=== PATIENT | male | born 1970 | race Caucasian/White ===

== ENCOUNTER 2024-07-27 19:44 | Inpatient (IN) | payer MEDICAID ==
[~2024-07-27] VITALS: Ht 193 cm; Wt 88.0 kg
[2024-07-27] MEDS ORDERED: LORazepam 2 MG TABLET PO PRN (20:30)
[2024-07-27] MEDS ORDERED: QUEtiapine FUMARATE 100 MG TABLET PO PRN (20:30)
[2024-07-27] MEDS ORDERED: GuaiFENesin/D-METHORPHAN [SUGAR-FREE] 200-20MG/10 ML SYRUP UDCUP PO PRN (21:45)
[2024-07-27] MEDS ORDERED: ACETAMINOPHEN 325 MG TABLET PO PRN (21:45)
[2024-07-27] MEDS ORDERED: LOPERAMIDE HCL 2 MG CAPSULE PO PRN (21:45)
[2024-07-27] MEDS ORDERED: PROMETHAZINE HCL 25 MG TABLET PO PRN (21:45)
[2024-07-27] MEDS ORDERED: HydrOXYzine PAMOATE 50 MG CAPSULE PO PRN (21:45)
[2024-07-27] MEDS ORDERED: MAG HYDROX/ALUMINUM HYD/SIMETH ES 30 ML SUSPENSION UDCUP PO PRN (21:45)
[2024-07-27] MEDS ORDERED: TUBERCULIN, PURIFIED PROTEIN DERIVATIVE 5 TU/0.1 ML SYRINGE ID ONE (21:45)
[2024-07-27] MEDS ORDERED: MAGNESIUM HYDROXIDE SUSPENSION 30 ML UDCUP PO PRN (21:45)
[2024-07-27] MEDS: ZOLPIDEM TARTRATE 10 MG TABLET PO PRN (22:41)
[2024-07-27 22:53] VITALS: BP 117/52; PULSE 75; RESP 17; TEMP 76.5; O2SAT 96
[2024-07-28 08:07] VITALS: BP 125/66; PULSE 74; RESP 17; TEMP 98; O2SAT 99
[2024-07-28] MEDS: GABAPENTIN 300 MG CAPSULE PO SCH (08:13)
[2024-07-28] MEDS: THIAMINE 100 MG TABLET PO SCH (08:25)
[2024-07-28] MEDS: MULTIVITAMINS WITH MINERALS, THERAPEUTIC TABLET PO SCH (08:26)
[2024-07-28] MEDS: OMEGA-3/DHA/EPA/FISH OIL 1,000 MG CAPSULE PO SCH (08:26)
[2024-07-28] MEDS: NALTREXONE HCL 50 MG TABLET PO SCH (08:26)
[2024-07-28] MEDS: FOLIC ACID 1 MG TABLET PO SCH (08:27)
[2024-07-28] MEDS: DULoxetine HCL 20 MG CAPSULE PO SCH (08:27)
[2024-07-28 08:47] LABS: BASOPHILS % (AUTO) 0.8 % (0.0-2.0); EOSINOPHILS % (AUTO) 3.1 % (1.0-6.0); HEMATOCRIT 43.5 % (41-53); HEMOGLOBIN 14.4 g/dL (13.5-17.5); LYMPHOCYTES # (AUTO) 2.2 K/uL (1.0-4.8); MEAN CORPUSCULAR HEMOGLOBIN 30.1 pg (26.0-34.0); MEAN CORPUSCULAR HGB CONC 33.1 G/dL (31.0-37.0); MEAN CORPUSCULAR VOLUME 91 fL (80-100); MONOCYTES # (AUTO) 0.6 K/uL (0.1-1.0); NEUTROPHILS # (AUTO) 3.6 K/uL (1.8-7.7); NEUTROPHILS % (AUTO) 54.1 % (40.0-70.0); PLATELET COUNT (AUTO) 315 K/uL (150-450); RED BLOOD CELL COUNT(AUTO) 4.78 MIL/uL (4.50-5.90); RED CELL DISTRIBUTION WIDTH 13.4 % (11.5-14.5); WHITE BLOOD COUNT (AUTO) 6.6 K/uL (4.5-11.0)
[2024-07-28 09:01] LABS: GLUCOMETER DEV NAME(LOC) POC.BV; POC SARS-COV2 AG, FIA NEGATIVE (NEGATIVE)
[2024-07-28 09:05] LABS: HEMOGLOBIN A1C 5.6 % (3.8-5.6)
[2024-07-28 09:12] LABS: ALANINE AMINOTRANSFERASE 33 U/L (12-78); ALBUMIN 3.9 g/dL (3.4-5.0); ALKALINE PHOSPHATASE 57 U/L (46-116); ANION GAP 12 mmol/L (8-16); ASPARTATE AMINOTRANSFERASE 32 U/L (15-37); BILIRUBIN,TOTAL 0.8 mg/dL (0.1-1.0); CALCIUM, TOTAL 8.7 mg/dL (8.8-10.5); CARBON DIOXIDE 22 mmol/L (22-29); CHLORIDE 103 mmol/L (98-107); CHOL/HDL RATIO 2.4 (4.2-7.3); CHOLESTEROL 141 mg/dL (131-200); CREATININE 0.98 mg/dL (0.60-1.30); FREE T4 (FREE THYROXINE) 0.76 ng/dL (0.76-1.46); GLOMERULAR FILTR. RATE CALC > 60 mL/min (>60); GLUCOSE,RANDOM 88 mg/dL (70-110); HDL CHOLESTEROL 60 mg/dL (40-60); LDL CHOL (CALC.) 67 mg/dL (0-130); POTASSIUM 3.9 mmol/L (3.5-5.1); SODIUM SERUM 137 mmol/L (136-145); THYROID STIMULATING HORMONE 1.59 uIU/mL (0.36-3.74); TOTAL PROTEIN, SERUM 7.3 g/dL (6.4-8.2); TRIGLYCERIDES 68 mg/dL (15-150); UREA NITROGEN, BLOOD 13 mg/dL (7-18)
[2024-07-28] MEDS ORDERED: QUEtiapine FUMARATE 100 MG TABLET PO PRN (17:15)
[2024-07-28] MEDS: BusPIRone HCL 15 MG TABLET PO ONE (18:07)
[2024-07-28] MEDS: GABAPENTIN 400 MG CAPSULE PO ONE (18:07)
[2024-07-28] MEDS: QUEtiapine FUMARATE 300 MG TABLET PO SCH (20:55)
[2024-07-28] MEDS ORDERED: MELATONIN 5 MG TABLET PO SCH (21:00)
[2024-07-29 08:12] VITALS: BP 120/70; PULSE 79; RESP 17; TEMP 98.1; O2SAT 99
[2024-07-29] MEDS: GABAPENTIN 400 MG CAPSULE PO SCH (09:56)
[2024-07-29] MEDS: BusPIRone HCL 15 MG TABLET PO SCH (09:57)
[2024-07-29 20:32] VITALS: BP 91/54; PULSE 95; RESP 17; TEMP 98; O2SAT 96
[2024-07-30 08:08] VITALS: BP 99/66; PULSE 78; RESP 16; TEMP 97.3; O2SAT 96
[2024-07-30] MEDS: BusPIRone HCL 10 MG TABLET PO SCH (09:01)
[2024-07-30 20:38] VITALS: BP 101/62; PULSE 68; RESP 18; TEMP 98.5; O2SAT 100
[2024-07-31 08:43] LABS: APPEARANCE,URINE TURBID (CLEAR); BILIRUBIN,URINE NEGATIVE (NEGATIVE); GLUCOSE, URINE (UA) NEGATIVE (NEGATIVE); KETONES,URINE NEGATIVE (NEGATIVE); LEUKOCYTE ESTERASE ,URINE NEGATIVE (NEGATIVE); NITRATE,URINE NEGATIVE (NEGATIVE); OCCULT BLOOD,URINE NEGATIVE (NEGATIVE); PROTEIN,URINE 30-70 mg/dL (NEGATIVE); SPECIFIC GRAVITIY, URINE 1.032 (1.003-1.030)
[2024-07-31 08:48] LABS: COLOR,URINE YELLOW (YELLOW)
[2024-07-31 08:55] LABS: ALCOHOL, URINE DRUG SCREEN NEGATIVE (NEGATIVE); AMPHET/METH SCREEN,URINE NEGATIVE (NEGATIVE); BARBITURATE SCREEN, URINE NEGATIVE (NEGATIVE); BENZODIAZEPINES SCREEN,URINE NEGATIVE (NEGATIVE); CANNABINOID SCREEN,URINE NEGATIVE (NEGATIVE); COCAINE SCREEN,URINE NEGATIVE (NEGATIVE); METHADONE SCREEN, URINE NEGATIVE (NEGATIVE); OPIATE SCREEN,URINE NEGATIVE (NEGATIVE); PHENCYCLIDINE SCREEN,URINE NEGATIVE (NEGATIVE)
[2024-07-31 09:57] VITALS: BP 106/63; PULSE 86; RESP 16; TEMP 97.3; O2SAT 96
[2024-07-31] MEDS: DULoxetine HCL 20 MG CAPSULE PO SCH (20:19)
[2024-07-31 20:45] VITALS: BP 102/61; PULSE 87; RESP 16; TEMP 97.5; O2SAT 98
[2024-08-01 08:37] VITALS: BP 109/66; PULSE 71; RESP 18; TEMP 98; O2SAT 98
[2024-08-01 20:16] VITALS: BP 110/60; PULSE 64; RESP 17; TEMP 97.4; O2SAT 96
[2024-08-02 08:30] VITALS: BP 108/64; PULSE 65; RESP 17; TEMP 97.9; O2SAT 96
[2024-08-02 20:25] VITALS: BP 98/69; PULSE 68; RESP 17; TEMP 98.1; O2SAT 97
[2024-08-03 08:16] VITALS: BP 76/50; PULSE 67; RESP 16; TEMP 98.1; O2SAT 100
[2024-08-03 13:06] VITALS: BP 91/64; PULSE 75; RESP 16; TEMP 97.9; O2SAT 97
[2024-08-03 21:36] VITALS: BP 101/63; PULSE 72; RESP 18; TEMP 98
[2024-08-04 10:47] VITALS: BP 92/55; PULSE 76; RESP 16; TEMP 98; O2SAT 99
[2024-08-04] MEDS: INFLUENZA VIRUS VACCINE TVS (6MO+) 2024-25/PF 45 MCG/0.5 ML SYRINGE IM. ONE (16:41)
[2024-08-04 20:03] VITALS: BP 99/59; PULSE 73; RESP 18; TEMP 97.5; O2SAT 98
[2024-08-04] MEDS: DULoxetine HCL 30 MG CAPSULE PO SCH (20:23)
[2024-08-05 09:56] VITALS: BP 90/60; PULSE 80; RESP 18; TEMP 98.3; O2SAT 99
[2024-08-05 12:08] VITALS: BP 108/63; PULSE 74; RESP 18; TEMP 97.3; O2SAT 97
[2024-08-05 20:28] VITALS: BP 110/64; PULSE 18; RESP 18; TEMP 98.2; O2SAT 99
[2024-08-06 08:20] VITALS: BP 98/63; PULSE 73; RESP 18; TEMP 97.4; O2SAT 99
[2024-08-06 21:28] VITALS: BP 99/67; PULSE 93; RESP 18; TEMP 96.9; O2SAT 98
[2024-08-07 08:18] VITALS: BP 131/76; PULSE 74; RESP 17; TEMP 98; O2SAT 97
[2024-08-07 21:38] VITALS: BP 105/73; PULSE 60; RESP 17; TEMP 97.2; O2SAT 99
[2024-08-08 08:07] VITALS: BP 118/69; PULSE 81; RESP 18; TEMP 98; O2SAT 100
[2024-08-08 20:12] VITALS: BP 104/68; PULSE 62; RESP 18; TEMP 96.3; O2SAT 95
[2024-08-08] MEDS: DULoxetine HCL 20 MG CAPSULE PO SCH (21:13)
[2024-08-09 08:58] VITALS: BP 98/61; PULSE 72; RESP 17; TEMP 97.4; O2SAT 98
[2024-08-09 20:44] VITALS: BP 102/62; PULSE 60; RESP 18; TEMP 97.8; O2SAT 98
[2024-08-10 08:13] VITALS: BP 127/61; PULSE 74; RESP 17; TEMP 97.3; O2SAT 99
[2024-08-10] MEDS ORDERED: ESZOPICLONE 3 MG TABLET PO PRN (15:15)
[2024-08-10] MEDS ORDERED: GABAPENTIN 300 MG CAPSULE PO PRN (15:15)
[2024-08-10 20:00] VITALS: BP 128/68; PULSE 86; RESP 18; TEMP 97.8; O2SAT 99
[2024-08-11] MEDS ORDERED: GABA-1201 PO (08:19)
[2024-08-11] MEDS ORDERED: OMEG100033 PO (08:19)
[2024-08-11] MEDS ORDERED: QUET300T19 PO (08:19)
[2024-08-11] MEDS ORDERED: DULO20CA71 PO (08:19)
[2024-08-11] MEDS ORDERED: BUSP10TA23 PO (08:19)
[2024-08-11 08:33] VITALS: BP 100/67; PULSE 90; RESP 16; TEMP 98; O2SAT 97
== END 2024-08-11 09:43 | disposition home or self-care (01) | DRG 753 ==
LOC: B2S 20:23
PROVIDERS: ADMIT Psychiatry & Neurology Psychiatry; ATTEND Psychiatry & Neurology Psychiatry
PROC: GZHZZZZ Group Psychotherapy (ICD-10-PCS; principal; 2024-07-28)
PROC: GZ58ZZZ Individual Psychotherapy, Cognitive-Behavioral (ICD-10-PCS; 2024-07-28)
DX: F31.5 Bipolar disorder, current episode depressed, severe, with psychotic features (principal); E83.51 Hypocalcemia; R45.851 Suicidal ideations; F17.210 Nicotine dependence, cigarettes, uncomplicated; F41.9 Anxiety disorder, unspecified; Z20.822 Contact with and (suspected) exposure to COVID-19
CPT/HCPCS: 80053; 80061; 80307; 81003; 83036; 84439; 84443; 85025; 86592

== ENCOUNTER 2024-11-02 19:10 | Inpatient (IN) | payer MEDICAID ==
[~2024-11-02] VITALS: Ht 193 cm; Wt 88.9 kg
[~2024-11-02 19:10] MED LIST: BUSP10TA23 PO; DULO20CA71 PO; GABA-1201 PO; OMEG100033 PO; QUET300T19 PO
[2024-11-02] MEDS ORDERED: OLANZapine 5 MG RAPDIS TABLET PO PRN (20:15)
[2024-11-02] MEDS ORDERED: PROMETHAZINE HCL 25 MG TABLET PO PRN (22:45)
[2024-11-02] MEDS ORDERED: HydrOXYzine PAMOATE 50 MG CAPSULE PO PRN (22:45)
[2024-11-02] MEDS ORDERED: ACETAMINOPHEN 325 MG TABLET PO PRN (22:45)
[2024-11-02] MEDS ORDERED: LORazepam 2 MG TABLET PO PRN (22:45)
[2024-11-02] MEDS ORDERED: GuaiFENesin/D-METHORPHAN [SUGAR-FREE] 200-20MG/10 ML SYRUP UDCUP PO PRN (22:45)
[2024-11-02] MEDS ORDERED: LOPERAMIDE HCL 2 MG CAPSULE PO PRN (22:45)
[2024-11-02] MEDS ORDERED: MAG HYDROX/ALUMINUM HYD/SIMETH ES 30 ML SUSPENSION UDCUP PO PRN (22:45)
[2024-11-02] MEDS ORDERED: MAGNESIUM HYDROXIDE SUSPENSION 30 ML UDCUP PO PRN (22:45)
[2024-11-02] MEDS ORDERED: QUEtiapine FUMARATE 100 MG TABLET PO PRN (22:45)
[2024-11-02] MEDS: ZOLPIDEM TARTRATE 10 MG TABLET PO PRN (22:47)
[2024-11-02] MEDS: LORazepam 2 MG TABLET PO PRN (22:47)
[2024-11-02 23:17] VITALS: BP 116/68; PULSE 65; RESP 18; TEMP 97.8; O2SAT 97
[2024-11-03] MEDS ORDERED: LORazepam 2 MG TABLET PO PRN (07:00)
[2024-11-03 08:00] VITALS: BP 104/63; PULSE 86; RESP 2; TEMP 97.8; O2SAT 96
[2024-11-03 08:14] VITALS: BP 104/63; PULSE 96; RESP 16; TEMP 97.8; O2SAT 96
[2024-11-03] MEDS: MULTIVITAMINS WITH MINERALS, THERAPEUTIC TABLET PO SCH (08:34)
[2024-11-03] MEDS: LORazepam 2 MG TABLET PO SCH (08:34)
[2024-11-03] MEDS: OMEGA-3/DHA/EPA/FISH OIL 1,000 MG CAPSULE PO SCH (08:34)
[2024-11-03] MEDS: GABAPENTIN 400 MG CAPSULE PO SCH (08:34)
[2024-11-03] MEDS: THIAMINE 100 MG TABLET PO SCH (08:34)
[2024-11-03] MEDS: BusPIRone HCL 10 MG TABLET PO SCH (08:34)
[2024-11-03] MEDS: DULoxetine HCL 20 MG CAPSULE PO SCH (08:34)
[2024-11-03] MEDS: FOLIC ACID 1 MG TABLET PO SCH (08:34)
[2024-11-03 09:33] LABS: BASOPHILS % (AUTO) 0.8 % (0.0-2.0); EOSINOPHILS % (AUTO) 3.3 % (1.0-6.0); HEMATOCRIT 41.1 % (41-53); HEMOGLOBIN 13.8 g/dL (13.5-17.5); LYMPHOCYTES # (AUTO) 1.4 K/uL (1.0-4.8); MEAN CORPUSCULAR HEMOGLOBIN 30.9 pg (26.0-34.0); MEAN CORPUSCULAR HGB CONC 33.7 G/dL (31.0-37.0); MEAN CORPUSCULAR VOLUME 92 fL (80-100); MONOCYTES # (AUTO) 0.5 K/uL (0.1-1.0); MONOCYTES % (AUTO) 7.3 % (2.0-9.0); NEUTROPHILS # (AUTO) 4.7 K/uL (1.8-7.7); NEUTROPHILS % (AUTO) 67.6 % (40.0-70.0); PLATELET COUNT (AUTO) 262 K/uL (150-450); RED BLOOD CELL COUNT(AUTO) 4.48 MIL/uL (4.50-5.90); RED CELL DISTRIBUTION WIDTH 12.7 % (11.5-14.5); WHITE BLOOD COUNT (AUTO) 6.9 K/uL (4.5-11.0)
[2024-11-03 09:45] LABS: HEMOGLOBIN A1C 5.8 % (3.8-5.6)
[2024-11-03 10:10] LABS: ALANINE AMINOTRANSFERASE 28 U/L (12-78); ALBUMIN 3.2 g/dL (3.4-5.0); ALKALINE PHOSPHATASE 71 U/L (46-116); ANION GAP 6 mmol/L (8-16); ASPARTATE AMINOTRANSFERASE 28 U/L (15-37); BILIRUBIN,TOTAL 0.4 mg/dL (0.1-1.0); CALCIUM, TOTAL 8.5 mg/dL (8.8-10.5); CARBON DIOXIDE 28 mmol/L (22-29); CHLORIDE 109 mmol/L (98-107); CHOL/HDL RATIO 2.2 (4.2-7.3); CHOLESTEROL 102 mg/dL (131-200); CREATININE 0.97 mg/dL (0.60-1.30); FREE T4 (FREE THYROXINE) 0.76 ng/dL (0.76-1.46); GLOMERULAR FILTR. RATE CALC > 60 mL/min (>60); GLUCOSE,RANDOM 87 mg/dL (70-110); HDL CHOLESTEROL 47 mg/dL (40-60); LDL CHOL (CALC.) 43 mg/dL (0-130); POTASSIUM 4.1 mmol/L (3.5-5.1); SODIUM SERUM 143 mmol/L (136-145); T4 (THYROXINE) 4.9 mcg/dL (4.7-13.3); TOTAL PROTEIN, SERUM 6.3 g/dL (6.4-8.2); TRIGLYCERIDES 59 mg/dL (15-150); UREA NITROGEN, BLOOD 15 mg/dL (7-18)
[2024-11-03] MEDS: PALIPERIDONE PALMITATE 234 MG/1.5 ML SYRINGE IM ONE (18:05)
[2024-11-03 20:00] VITALS: RESP 16; TEMP 97.6
[2024-11-03] MEDS: MELATONIN 5 MG TABLET PO SCH (20:58)
[2024-11-03] MEDS: QUEtiapine FUMARATE 200 MG TABLET PO SCH (21:00)
[2024-11-03] MEDS ORDERED: NICOTINE 21 MG/24 HOUR PATCH TD PRN (21:45)
[2024-11-03 22:50] VITALS: RESP 16
[2024-11-03 23:37] VITALS: RESP 16; TEMP 97.6
[2024-11-04 08:22] VITALS: BP 100/61; PULSE 70; RESP 17; TEMP 97.4; O2SAT 97
[2024-11-04 20:11] VITALS: BP 103/61; PULSE 89; RESP 16; TEMP 98.2; O2SAT 98
[2024-11-04 22:50] VITALS: BP 118/76; PULSE 79; RESP 18; TEMP 97.8; O2SAT 96
[2024-11-05] MEDS ORDERED: LORazepam 1 MG TABLET PO PRN (07:00)
[2024-11-05] MEDS: LORazepam 1 MG TABLET PO SCH (08:42)
[2024-11-05 08:48] VITALS: BP 104/77; PULSE 72; RESP 15; TEMP 97.8; O2SAT 97
[2024-11-05 20:00] VITALS: BP 101/60; PULSE 65; RESP 16; TEMP 97.5; O2SAT 98
[2024-11-05] MEDS: QUEtiapine FUMARATE 200 MG TABLET PO SCH (20:33)
[2024-11-06] MEDS: DULoxetine HCL 20 MG CAPSULE PO SCH (08:10)
[2024-11-06 09:15] VITALS: BP 105/66; PULSE 67; RESP 18; TEMP 97.3; O2SAT 97
[2024-11-06] MEDS: LORazepam 1 MG TABLET PO PRN (17:04)
[2024-11-06 20:36] VITALS: BP 101/62; PULSE 64; RESP 16; TEMP 98; O2SAT 100
[2024-11-07 08:19] VITALS: BP 100/60; PULSE 71; RESP 17; TEMP 97.9; O2SAT 97
[2024-11-07] MEDS ORDERED: PALIPERIDONE PALMITATE 156 MG/ML SYRINGE IM ONE (09:00)
[2024-11-07 20:00] VITALS: BP 100/67; PULSE 71; RESP 16; TEMP 97.8; O2SAT 97
[2024-11-08 08:32] VITALS: BP 85/52; PULSE 75; RESP 18; TEMP 97.7; O2SAT 97
[2024-11-08 20:03] VITALS: BP 109/65; PULSE 77; RESP 17; TEMP 97.8; O2SAT 98
[2024-11-09 08:16] VITALS: RESP 16
[2024-11-09 08:19] VITALS: BP 109/60; PULSE 77; RESP 16; TEMP 98; O2SAT 97
[2024-11-09 20:07] VITALS: BP 106/69; PULSE 67; RESP 17; TEMP 97.6; O2SAT 97
[2024-11-10 08:23] VITALS: BP_SYST 110; BP_SYST 88; BP_DIAS 52; BP_DIAS 72; PULSE 78; RESP 15; TEMP 97.6; O2SAT 97
[2024-11-10] MEDS: DULoxetine HCL 30 MG CAPSULE PO SCH (08:25)
[2024-11-10 22:47] VITALS: BP 108/70; PULSE 77; RESP 18; TEMP 97.8; O2SAT 98
[2024-11-11 08:23] VITALS: BP 118/71; PULSE 80; RESP 18; TEMP 97.9; O2SAT 98
[2024-11-11 09:44] LABS: APPEARANCE,URINE HAZY (CLEAR); BILIRUBIN,URINE NEGATIVE (NEGATIVE); COLOR,URINE YELLOW (YELLOW); GLUCOSE, URINE (UA) NEGATIVE (NEGATIVE); KETONES,URINE NEGATIVE (NEGATIVE); LEUKOCYTE ESTERASE ,URINE NEGATIVE (NEGATIVE); NITRATE,URINE NEGATIVE (NEGATIVE); OCCULT BLOOD,URINE NEGATIVE (NEGATIVE); PROTEIN,URINE TRACE mg/dL (NEGATIVE); SPECIFIC GRAVITIY, URINE 1.023 (1.003-1.030); UROBILINOGEN,URINE <=1.0 mg/dL (<=1.0)
[2024-11-11 09:51] LABS: ALCOHOL, URINE DRUG SCREEN NEGATIVE (NEGATIVE); AMPHET/METH SCREEN,URINE NEGATIVE (NEGATIVE); BARBITURATE SCREEN, URINE NEGATIVE (NEGATIVE); BENZODIAZEPINES SCREEN,URINE NEGATIVE (NEGATIVE); CANNABINOID SCREEN,URINE NEGATIVE (NEGATIVE); COCAINE SCREEN,URINE NEGATIVE (NEGATIVE); METHADONE SCREEN, URINE NEGATIVE (NEGATIVE); OPIATE SCREEN,URINE NEGATIVE (NEGATIVE); PHENCYCLIDINE SCREEN,URINE NEGATIVE (NEGATIVE)
[2024-11-11 20:59] VITALS: BP 95/62; PULSE 70; RESP 16; TEMP 97.6; O2SAT 99
[2024-11-12 09:20] VITALS: BP 100/65; PULSE 75; RESP 17; TEMP 97.5; O2SAT 98
[2024-11-12] MEDS ORDERED: DULO-114 PO (16:31)
[2024-11-12] MEDS ORDERED: QUET200T30 PO (16:31)
[2024-11-12] MEDS ORDERED: MELA5TAB40 PO (16:31)
[2024-11-12] MEDS ORDERED: GABA-1201 PO (16:31)
[2024-11-12 20:00] VITALS: BP 95/60; PULSE 83; RESP 17; TEMP 96.6; O2SAT 98
[2024-11-13 08:29] VITALS: BP 118/60; PULSE 73; RESP 17; TEMP 97.2; O2SAT 99
== END 2024-11-13 10:33 | disposition home or self-care (01) | DRG 750 ==
LOC: B3A 20:04 → B2S 11-10 20:10
PROVIDERS: ADMIT Psychiatry & Neurology Psychiatry; ATTEND Psychiatry & Neurology Psychiatry
PROC: GZHZZZZ Group Psychotherapy (ICD-10-PCS; principal; 2024-11-03)
PROC: GZ58ZZZ Individual Psychotherapy, Cognitive-Behavioral (ICD-10-PCS; 2024-11-03)
PROC: GZ56ZZZ Individual Psychotherapy, Supportive (ICD-10-PCS; 2024-11-03)
DX: F25.9 Schizoaffective disorder, unspecified (principal); R45.851 Suicidal ideations; F31.4 Bipolar disorder, current episode depressed, severe, without psychotic features; F17.200 Nicotine dependence, unspecified, uncomplicated; F10.20 Alcohol dependence, uncomplicated; G25.81 Restless legs syndrome; Z55.9 Problems related to education and literacy, unspecified; Z59.9 Problem related to housing and economic circumstances, unspecified; Z60.8 Other problems related to social environment; Z63.9 Problem related to primary support group, unspecified; Z65.3 Problems related to other legal circumstances
CPT/HCPCS: 80053; 80061; 80307; 81003; 83036; 84436; 84439; 84443; 85025; 86592

== ENCOUNTER 2025-08-06 13:41 | Inpatient (IN) | payer MEDICAID ==
[~2025-08-06] VITALS: Ht 190.5 cm; Wt 97.0 kg
[~2025-08-06 13:41] MED LIST changes: +DULO20CA23 PO; -DULO20CA71 PO; +DULO30CA62 PO; +MELA5TAB40 PO; +QUET200T30 PO
[2025-08-06 15:30] VITALS: BP 116/85; PULSE 82; RESP 20; TEMP 97.7; O2SAT 100
[2025-08-06] MEDS ORDERED: LORazepam 2 MG/ML VIAL IM PRN (18:15)
[2025-08-06] MEDS ORDERED: LOPERAMIDE HCL 2 MG CAPSULE PO PRN (20:00)
[2025-08-06] MEDS ORDERED: MAG HYDROX/ALUMINUM HYD/SIMETH ES 30 ML SUSPENSION UDCUP PO PRN (20:00)
[2025-08-06] MEDS ORDERED: IBUPROFEN 400 MG TABLET PO PRN (20:00)
[2025-08-06] MEDS ORDERED: GuaiFENesin/D-METHORPHAN [SUGAR-FREE] 200-20MG/10 ML SYRUP UDCUP PO PRN (20:00)
[2025-08-06] MEDS ORDERED: NICOTINE 14 MG/24 HOUR PATCH TD PRN (20:00)
[2025-08-06] MEDS ORDERED: ONDANSETRON 4 MG TABLET PO PRN (20:00)
[2025-08-06] MEDS ORDERED: ACETAMINOPHEN 325 MG TABLET PO PRN (20:00)
[2025-08-06] MEDS ORDERED: MAGNESIUM HYDROXIDE SUSPENSION 30 ML UDCUP PO PRN (20:00)
[2025-08-06] MEDS ORDERED: DOCUSATE SODIUM 100 MG CAPSULE PO PRN (20:00)
[2025-08-06] MEDS ORDERED: PETROLATUM,WHITE 28 GM JELLY TP PRN (20:00)
[2025-08-06] MEDS ORDERED: ALBUTEROL SULFATE HFA 90 MCG/PUFF 8 GM INHALER IH PRN (20:00)
[2025-08-06] MEDS: ZOLPIDEM TARTRATE 5 MG TABLET PO PRN (20:41)
[2025-08-06] MEDS: MELATONIN 5 MG TABLET PO SCH (20:41)
[2025-08-07 08:04] VITALS: BP 117/82; PULSE 80; RESP 16; TEMP 99.8; O2SAT 98
[2025-08-07] MEDS: OMEGA-3/DHA/EPA/FISH OIL 1,000 MG CAPSULE PO SCH (08:36)
[2025-08-07 08:39] LABS: PLATELET COUNT (AUTO) 267 K/uL (150-450); RED BLOOD CELL COUNT(AUTO) 4.59 MIL/uL (4.50-5.90); RED CELL DISTRIBUTION WIDTH 13.3 % (11.5-14.5); WHITE BLOOD COUNT (AUTO) 6.4 K/uL (4.5-11.0)
[2025-08-07 09:22] LABS: ASPARTATE AMINOTRANSFERASE 36 U/L (15-37); CALCIUM, TOTAL 8.4 mg/dL (8.8-10.5); CHOL/HDL RATIO 3.2 (4.2-7.3); CREATININE 0.78 mg/dL (0.60-1.30); GLOMERULAR FILTR. RATE CALC > 60 mL/min (>60); GLUCOSE,RANDOM 96 mg/dL (70-110); LDL CHOL (CALC.) 71 mg/dL (0-130); SODIUM SERUM 135 mmol/L (136-145); TOTAL PROTEIN, SERUM 6.6 g/dL (6.4-8.2); UREA NITROGEN, BLOOD 11 mg/dL (7-18)
[2025-08-07 20:14] VITALS: BP 127/82; PULSE 101; RESP 17; TEMP 98.8; O2SAT 97
[2025-08-08 08:15] VITALS: BP 121/74; PULSE 89; RESP 17; TEMP 98.4; O2SAT 100
[2025-08-08] MEDS ORDERED: QUET300T2 PO (14:23)
[2025-08-08] MEDS ORDERED: LAMO25TA36 PO (14:24)
== END 2025-08-08 15:52 | disposition home or self-care (01) | DRG 750 ==
LOC: B2S 15:15
PROVIDERS: ADMIT Psychiatry & Neurology Child & Adolescent Psychiatry; ATTEND Psychiatry & Neurology Child & Adolescent Psychiatry
PROC: GZ56ZZZ Individual Psychotherapy, Supportive (ICD-10-PCS; 2025-08-07)
PROC: GZ58ZZZ Individual Psychotherapy, Cognitive-Behavioral (ICD-10-PCS; 2025-08-07)
PROC: GZ52ZZZ Individual Psychotherapy, Cognitive (ICD-10-PCS; principal; 2025-08-08)
DX: F31.64 Bipolar disorder, current episode mixed, severe, with psychotic features (principal); R45.851 Suicidal ideations; E78.5 Hyperlipidemia, unspecified; G47.00 Insomnia, unspecified; F10.90 Alcohol use, unspecified, uncomplicated; Y90.9 Presence of alcohol in blood, level not specified; Z79.899 Other long term (current) drug therapy
CPT/HCPCS: 80053; 80061; 83036; 84436; 84439; 84443; 85025

== ENCOUNTER 2025-09-11 16:13 | Emergency (ER) | payer MEDICAID ==
[~2025-09-11] VITALS: Ht 193 cm; Wt 97.3 kg
[~2025-09-11 16:13] MED LIST changes: -BUSP10TA23 PO; -DULO20CA23 PO; -DULO30CA62 PO; -GABA-1201 PO; +LAMO25TA36 PO; -MELA5TAB40 PO; -OMEG100033 PO; -QUET200T30 PO; -QUET300T19 PO; +QUET300T2 PO
[2025-09-11 16:21] VITALS: BP 124/58; PULSE 69; RESP 16; TEMP 97.4; O2SAT 96
== END 2025-09-11 21:01 | disposition short-term general hospital (02) ==
LOC: EMS 16:13
DX: M25.572 Pain in left ankle and joints of left foot (principal); F32.A Depression, unspecified; F41.9 Anxiety disorder, unspecified; Z96.698 Presence of other orthopedic joint implants; Z79.899 Other long term (current) drug therapy
CPT/HCPCS: 99283

== ENCOUNTER 2025-09-19 00:35 | Emergency (ER) | payer MEDICAID ==
[~2025-09-19] VITALS: Ht 193 cm; Wt 97.3 kg
[2025-09-19 00:42] VITALS: TEMP 97.7
[2025-09-19] MEDS: SODIUM CHLORIDE 0.9% 1,000 ML IV ONE (02:52)
[2025-09-19 02:54] LABS: COVID AG,FIA SOURCE NASAL SWAB
[2025-09-19 02:59] LABS: PLATELET COUNT (AUTO) 224 K/uL (150-450); RED BLOOD CELL COUNT(AUTO) 5.11 MIL/uL (4.50-5.90); RED CELL DISTRIBUTION WIDTH 13.0 % (11.5-14.5); WHITE BLOOD COUNT (AUTO) 6.8 K/uL (4.5-11.0)
[2025-09-19 03:03] LABS: CALCIUM, TOTAL 8.7 mg/dL (8.8-10.5); CREATININE 1.22 mg/dL (0.60-1.30); GLOMERULAR FILTR. RATE CALC > 60 mL/min (>60); GLUCOSE,RANDOM 113 mg/dL (70-110); SODIUM SERUM 135 mmol/L (136-145); UREA NITROGEN, BLOOD 18 mg/dL (7-18)
[2025-09-19 03:13] LABS: SARS-COV2 (COVID) ANTIGEN,FIA Negative (Negative)
[2025-09-19 03:14] LABS: ALCOHOL, BLOOD (SERUM) < 3 mg/dL (0-10); TROPONIN I-HIGH SENSITIVITY 4 ng/L (<76)
[2025-09-19 04:27] VITALS: BP 131/92; PULSE 62; RESP 16; O2SAT 99
== END 2025-09-19 05:33 ==
LOC: EMS 00:36
DX: E86.0 Dehydration (principal); F31.9 Bipolar disorder, unspecified; F17.210 Nicotine dependence, cigarettes, uncomplicated; F41.9 Anxiety disorder, unspecified; Z79.899 Other long term (current) drug therapy; Z20.822 Contact with and (suspected) exposure to COVID-19
CPT/HCPCS: 99285; 96360; 71045; 87426; 80048; 83880; 84484; 85025; 36415; 93005; G0480; J7030